=== PATIENT | female | born 1950 | race Caucasian/White ===

== ENCOUNTER 2016-09-24 14:52 | Outpatient (CLI) | payer MEDICARE ==
--- NOTE | 2016-09-24 22:26 | RAD ---
BILATERAL KNEES WEIGHT BEARING Date: 09-24-16 Technique: Upright standing AP views of each knee were obtained. FINDINGS: There is significant medial joint space narrowing bilaterally, right a little more so than left. The re is no bony sclerosis. Osteophyte formation is present medially but minimal. No fracture was appre ciated. The articular surfaces seemed smooth. IMPRESSION: Very prominent medial joint space narrowing with minimal osteophytosis. Findings are consistent with the clinical history of osteoarthritis. POS: HOME
== END 2016-09-24 14:53 | disposition home or self-care (01) ==
LOC: BURRAD 14:52
PROVIDERS: ATTEND Family Medicine
DX: M17.0 Bilateral primary osteoarthritis of knee (principal)
CPT/HCPCS: 73565

== ENCOUNTER 2021-07-24 13:09 | Emergency (ER) | payer MEDICARE ==
[2021-07-24] MEDS ORDERED: Boostrix 0.5 ML (Tdap) VIAL ONE (13:34)
[2021-07-24] MEDS ORDERED: Bacitracin 1 PK ONE (13:35)
[2021-07-24] MEDS ORDERED: Lidocaine 1% PF 5 ML VIAL ONE (13:35)
[2021-07-24] MEDS ORDERED: Sterile Water 0 ML ONE (13:55)
[2021-07-24] MEDS ORDERED: CEFAZOLIN 1 GM VIAL ONE (13:55)
[2021-07-24] MEDS ORDERED: Sterile Water 10 ML ONE (13:56)
== END 2021-07-24 14:41 | disposition home or self-care (01) ==
LOC: BURERS 13:09
DX: S61.211A Laceration without foreign body of left index finger without damage to nail, initial encounter (principal); I25.2 Old myocardial infarction; W26.0XXA Contact with knife, initial encounter; Y93.G3 Activity, cooking and baking; Z23 Encounter for immunization; Z79.82 Long term (current) use of aspirin; Z79.899 Other long term (current) drug therapy
CPT/HCPCS: 12002; 90471; 90715; 96372; J0690